=== PATIENT | female | born 1995 | race Caucasian/White ===

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

== ENCOUNTER 2018-01-27 16:07 | Emergency (ER) | payer OTHER ==
[2018-01-27 16:29] VITALS: BMI 21.1
--- NOTE | 2018-01-27 17:42 | PDOC ---
History of Present Illness - General Chief Complaint: Nausea/Vomiting Stated Complaint: STOMACH PAIN, VOMITING Time Seen by Provider: 01/27/18 16:55 - History of Present Illness Initial Comments: Patient is a 22 year old female, with no significant PMH, who presents to the emergency department complaining of 1 day of worsening pelvic pain at end of menstrual cycle. Pt states she started her period 6 days ago and has noted increased cramping/pain, with no change in bleeding volume/frequency, dysuria, discharge, flank pain. Pt states she noted her pain became more constant and sharp in nature, with no cramping and no further bleeding today. Pt also endorses nausea and two episodes of NBNB today. Pt with no sick contacts, recent travel or dietary changes. Pt is currently sexually active with one male partner, does not use protection, with no hx of STIs and no ob gyn conditions. Patient denies chest pain, shortness of breath, headache or dizziness. Denies fever, chills, diarrhea and constipation. Denies dysuria, frequency, urgency and hematuria. Allergies:None Past surgical history: None Social History: Social drinker, 2-3 drinks/month; no smoking or drug use PMD: None 01/27/18 17:40 Past History - Past Medical History Allergies/Adverse Reactions: Allergies Allergy/AdvReac Type Severity Reaction Status Date / Time No Known Allergies Allergy Verified 01/27/18 16:22 Home Medications: Ambulatory Orders Penicillin V Potassium [Pen Vee K -] 500 mg PO TID #30 tablet 09/10/16 Clindamycin [Cleocin -] 300 mg PO TID #30 capsule 09/14/16 Ondansetron [Zofran Odt -] 4 mg SL BID #14 od.tablet 01/27/18 COPD: No - Immunization History Immunization Up to Date: Yes - Suicide/Smoking/Psychosocial Hx Smoking History: Never smoked Hx Alcohol Use: No Drug/Substance Use Hx: No Substance Use Type: None Review of Systems - Review of Systems Comments:: GENERAL/CONSTITUTIONAL: No fever or chills. No weakness. HEAD, EYES, EARS, NOSE AND THROAT: No change in vision. No ear pain or discharge. No sore throat. CARDIOVASCULAR: No chest pain or shortness of breath RESPIRATORY: No cough, wheezing, or hemoptysis. GASTROINTESTINAL: +N/V; No diarrhea or constipation. GENITOURINARY: +band-like pelvic pain; No dysuria, frequency, or change in urination. MUSCULOSKELETAL: No joint or muscle swelling or pain. No neck or back pain. SKIN: No rash NEUROLOGIC: No headache, vertigo, loss of consciousness, or change in strength/ sensation. ENDOCRINE: No increased thirst. No abnormal weight change HEMATOLOGIC/LYMPHATIC: No anemia, easy bleeding, or history of blood clots. ALLERGIC/IMMUNOLOGIC: No hives or skin allergy. 01/27/18 17:50 *Physical Exam - Vital Signs Last Vital Signs Temp Pulse Resp BP Pulse Ox 98.4 F 69 18 116/73 100 01/27/18 16:23 01/27/18 16:23 01/27/18 16:23 01/27/18 16:23 01/27/18 16:23 - Physical Exam Comments: GENERAL: young woman, Awake, alert, and fully oriented, in no acute distress HEAD: No signs of trauma, normocephalic, atraumatic EYES: PERRLA, EOMI, sclera anicteric, conjunctiva clear ENT: Auricles normal inspection, hearing grossly normal, nares patent, oropharynx clear without exudates. Moist mucosa NECK: Normal ROM, supple, no lymphadenopathy, JVD, or masses LUNGS: No distress, speaks full sentences, clear to auscultation bilaterally HEART: Regular rate and rhythm, normal S1 and S2, no murmurs, rubs or gallops, peripheral pulses normal and equal bilaterally. ABDOMEN: Suprapubic pain+; Soft, normoactive bowel sounds. No guarding, no rebound. No masses EXTREMITIES : Normal inspection, Normal range of motion, no edema. No clubbing or cyanosis. NEUROLOGICAL: Cranial nerves II through XII grossly intact. Normal speech, normal gait, no focal sensorimotor deficits SKIN: Warm, Dry, normal turgor, no rashes or lesions noted 01/27/18 17:51 ED Treatment Course - LABORATORY CBC & Chemistry Diagram: 01/27/18 18:37 01/27/18 18:37 Medical Decision Making - Medical Decision Making Patient is a 22 year old female, with no significant PMH, who presents to the emergency department complaining of 1 day of worsening pelvic pain at end of menstrual cycle. DDX include menstrual cramping, GERD, PUD, viral gastritis, UTI , PID, , kidney stone, appendicitis. Plan: - cbc, cmp - UA, u- preg - gc/chlamydia 01/27/18 18:09 UA, cbc, CMP, U-preg all negative; Will discharge home with PO zofran and motrin for pain control. 01/27/18 20:10 *DC/Admit/Observation/Transfer Diagnosis at time of Disposition: Menstrual pain - Discharge Dispostion Disposition: HOME Condition at time of disposition: Good Decision to Admit order: No - Referrals Referrals: Keisha Garcia [Primary Care Provider] - 1 week - Patient Instructions Printed Discharge Instructions: Painful Menstrual Periods, DI for Dysmenorrhea , DI for Nausea -- Adult Additional Instructions: During your visit to the [facility] ED, you were evaluated for nausea,vomiting and abdominal pain. You received standard lab tests, which were all unremarkable. You are being discharged home with outpatient follow-up with your primary care provider. Please take motrin 400mg every four hours if you experience persistent lower abdominal pain. You are being provided a prescription for oral zofran 4mg for nausea. Please take one dose every four hours as needed. If you experience any of the following symptoms, please return to the ED: - Persistent fevers/chills >3 days - Pain with urination, or blood/pus in your urine - Worsening diarrhea or persistent blood in your stool - Persistent bleeding, vaginal discharge or worsening of your abdominal pain - Any new or concerning symptoms - Post Discharge Activity
[2018-01-27 18:44] LABS: BASO % 0.6 % (0-2.0); EOS % 1.8 % (0-4.5); HCG,QUALITATIVE URINE NEGATIVE; HEMATOCRIT 36.8 % (32.4-45.2); HEMOGLOBIN 11.6 GM/dL (10.7-15.3); LYMPH % 25.6 % (8-40); MCH 23.5 pg (25.7-33.7); MCHC 31.5 g/dl (32.0-36.0); MEAN CELL VOLUME 74.6 fl (80-96); MONO % 5.7 % (3.8-10.2); NEUT % 66.3 % (42.8-82.8); PLATELET COUNT 250 K/MM3 (134-434); RBC 4.93 M/mm3 (3.60-5.2); WHITE BLOOD COUNT 8.1 K/mm3 (4.0-10.0)
[2018-01-27 18:47] LABS: URINE APPEARANCE CLEAR; URINE BILIRUBIN NEGATIVE (<2.0 mg/dL); URINE COLOR STRAW; URINE GLUCOSE (UA) NEGATIVE (NEGATIVE); URINE KETONE NEGATIVE (NEGATIVE); URINE LEUK ESTERASE NEGATIVE (NEGATIVE); URINE NITRITE NEGATIVE (NEGATIVE); URINE PROTEIN NEGATIVE (NEGATIVE); URINE UROBILINOGEN NEGATIVE mg/dL (0.2-1.0)
[2018-01-27 19:12] LABS: ALBUMIN 3.8 g/dl (3.4-5.0); ANION GAP 5 (8-16); BLOOD UREA NITROGEN 9 mg/dL (7-18); CALCIUM 8.4 mg/dL (8.5-10.1); CHLORIDE 110 mmol/L (98-107); CO2 27 mmol/L (21-32); CREATININE 0.7 mg/dL (0.55-1.02); GLUCOSE,RANDOM 90 mg/dL (74-106); POTASSIUM 3.9 mmol/L (3.5-5.1); SGOT/AST 9 U/L (15-37); SGPT/ALT 13 U/L (12-78); SODIUM 142 mmol/L (136-145)
[2018-01-27 19:14] LABS: ALK PHOS 40 U/L (45-117); BILIRUBIN,TOTAL 0.3 mg/dL (0.2-1.0); TOT PROT 7.2 g/dl (6.4-8.2)
[2018-01-27] MEDS ORDERED: IBUPROFEN 600 MG TABLET (FP) PO ONE ×2 (19:33→20:57)
--- NOTE | 2018-01-27 20:12 | PDOC ---
Attending Attestation - Resident Resident Name: Aristeo Elaine - ED Attending Attestation I have performed the following: I have examined & evaluated the patient, The case was reviewed & discussed with the resident, I agree w/resident's findings & plan, Exceptions are as noted - HPI HPI: 01/27/18 20:11 22-year-old female presents with several episodes of vomiting today. She denies fever, chills or diarrhea. She does complain of some suprapubic discomfort. She is finishing her menstrual cycle - Physicial Exam PE: 01/27/18 20:12 Well-nourished, well-developed 22-year-old female in no acute distress. Head normocephalic/atraumatic. Neck supple Lungs clear to auscultation bilaterally CVS regular rate and rhythm S1, S2 Abdominal exam. There is no rebound and no guarding. She has no right lower or left lower quadrant pain. Upon palpation, she does complain of some mild suprapubic discomfort with deep palpation Extremities no edema, no clubbing, no cellulitis. Neuro alert and oriented 3 ambulating with ease. skin warm and dry,no rashes Psych appropriate - Medical Decision Making 01/27/18 20:13 CBC and chemistry is essentially unremarkable. UA negative. Negative test Impression gastritis
[2018-01-27 21:09] VITALS: BP 106/72; PULSE 78; TEMP 97.9
--- NOTE | 2018-01-31 13:22 | PDOC ---
Patient Follow-up (Call Back) - Post ED Follow - Up Condition at time of discharge: Good Disposition at time of original discharge: HOME - Disposition Additional Instructions/Notes: Called patient back to advise her of positive Chlamydia results and phoned in some azithromycin. She will follow-up with her PCP. Negative
== END 2018-01-27 20:55 | disposition home or self-care (01) ==
LOC: JER 16:07
DX: N94.6 Dysmenorrhea, unspecified (principal)
CPT/HCPCS: 36415; 80053; 81003; 84703; 85025; 87491; 87591; 99283-25

== ENCOUNTER 2019-08-23 15:56 | Emergency (ER) | payer OTHER ==
[2019-08-23 16:04] VITALS: BP 136/92; PULSE 95; TEMP 98.2; BMI 28.7
--- NOTE | 2019-08-23 16:52 | PDOC ---
History of Present Illness - General Chief Complaint: Pain Stated Complaint: CHEST PAIN/SWOLLEN FEET Time Seen by Provider: 08/23/19 16:08 - History of Present Illness Initial Comments: 08/23/19 16:49 24-year-old female without comorbidities presents for evaluation of atraumatic bilateral heel heel pain x4 days and left upper abdominal pain intermittently she describes as a sharp stab however is absent now. Past History - Past Medical History Allergies/Adverse Reactions: Allergies Allergy/AdvReac Type Severity Reaction Status Date / Time No Known Allergies Allergy Verified 08/23/19 16:02 Home Medications: Ambulatory Orders Penicillin V Potassium [Pen Vee K -] 500 mg PO TID #30 tablet 09/10/16 Clindamycin [Cleocin -] 300 mg PO TID #30 capsule 09/14/16 Ondansetron [Zofran Odt -] 4 mg SL BID #14 od.tablet 01/27/18 Azithromycin [Zithromax] 1,000 mg PO ONCE #2 tablet 01/31/18 COPD: No - Immunization History Immunization Up to Date: Yes - Psycho Social/Smoking Cessation Hx Smoking History: Never smoked Information on smoking cessation initiated: No Hx Alcohol Use: No Drug/Substance Use Hx: No Substance Use Type: None Review of Systems - Review of Systems Musculoskeletal: Yes: See HPI, Joint Pain *Physical Exam - Vital Signs Last Vital Signs Temp Pulse Resp BP Pulse Ox 98.2 F 95 H 16 136/92 100 08/23/19 16:02 08/23/19 16:02 08/23/19 16:02 08/23/19 16:02 08/23/19 16:02 - Physical Exam 08/23/19 16:49 Bilateral feet and ankle skin color and temperature normal range of motion is full. No areas of tenderness about the medial lateral malleolus base of the fifth metatarsal navicular ATFL. Mild tenderness over the retrocalcaneal bursa. Achilles nontender negative Menon's neurovascular intact abdomen soft nontender nondistended Medical Decision Making - Medical Decision Making 08/23/19 16:50 Retrocalcaneal bursitis and most likely diaphragmatic spasm follow-up with PCP and orthopedic surgery Discharge - Discharge Information Problems reviewed: Yes Clinical Impression/Diagnosis: Retrocalcaneal bursitis of both feet, Spasm of diaphragm Condition: Stable Disposition: HOME - Admission No - Follow up/Referral Referrals: Shahana Ramirez MD [Primary Care Provider] - Arsenio Valentin DO [Staff Physician] - - Patient Discharge Instructions Additional Instructions: Tylenol Motrin as directed for pain. Weight-bear as tolerated follow-up with orthopedic surgery without fail in 2 to 3 days for further evaluation and treatment of your ankle pain and with your primary care physician in 2 to 3 days for your diaphragmatic spasm pain. Return to the emergency room for worsening symptoms again follow-up with both physicians both orthopedic surgery and primary care in 2 to 3 days without fail. - Post Discharge Activity
== END 2019-08-23 17:13 | disposition home or self-care (01) ==
LOC: JERFT 15:56
DX: M77.52 Other enthesopathy of left foot and ankle (principal); M77.51 Other enthesopathy of right foot and ankle; R06.6 Hiccough
CPT/HCPCS: 99282-25

== ENCOUNTER 2021-06-16 19:58 | Emergency (ER) | payer OTHER ==
[2021-06-16 20:15] VITALS: BMI 31.1
[2021-06-17] MEDS ORDERED: ACETAMINOPHEN 325 MG TABLET (FP) PO ONE (00:15)
[2021-06-17] MEDS ORDERED: ACETAMINOPHEN 325 MG TABLET (FP) ONE (00:21)
[2021-06-17 00:57] VITALS: TEMP 98.6
[2021-06-17 01:09] VITALS: BP 117/67; PULSE 75
== END 2021-06-17 01:10 | disposition home or self-care (01) ==
LOC: JER 19:58 → JERFT 19:58 → JER 06-17 01:10
DX: S00.83XA Contusion of other part of head, initial encounter (principal); R04.0 Epistaxis; Y04.8XXA Assault by other bodily force, initial encounter
CPT/HCPCS: 70450-TC; 70486-TC; 99284-25

== ENCOUNTER 2024-02-22 17:07 | Emergency (ER) | payer OTHER ==
[2024-02-22 17:15] VITALS: BP 129/69; PULSE 89; RESP 20; TEMP 98.6; BMI 33.2
[2024-02-22 19:21] LABS: BASO % 0.4 % (0-2.0); EOS % 0.9 % (0-4.5); HEMATOCRIT 36.8 % (32.4-45.2); HEMOGLOBIN 11.9 GM/dL (10.7-15.3); LYMPH % 30.9 % (8-40); MCH 23.7 pg (25.7-33.7); MCHC 32.5 g/dl (32.0-36.0); MEAN CELL VOLUME 73.1 fl (80-96); MEAN PLT VOLUME 8.6 fl (7.5-11.1); MONO % 6.2 % (3.8-10.2); NEUT % 61.6 % (42.8-82.8); PLATELET COUNT 283 10^3/uL (134-434); RBC 5.03 M/mm3 (3.60-5.2); RDW 14.6 % (11.6-15.6); WHITE BLOOD COUNT 9.7 K/mm3 (4.0-10.0)
[2024-02-22 19:25] LABS: EPI CELLS 15 /uL (0-25.1); HYALINE CASTS 0 /uL (0-3.1); PH,URINE 7.5 (5.0-8.0); URINE APPEARANCE CLEAR; URINE BACTERIA 161 /uL (0-1359); URINE BILIRUBIN NEGATIVE (NEGATIVE); URINE COLOR YELLOW; URINE GLUCOSE (UA) NEGATIVE (NEGATIVE); URINE KETONE NEGATIVE (NEGATIVE); URINE LEUK ESTERASE TRACE (NEGATIVE); URINE NITRITE NEGATIVE (NEGATIVE); URINE PROTEIN NEGATIVE (NEGATIVE); URINE RBC 19 /uL (0-23.9); URINE UROBILINOGEN 0.2 mg/dL (0.2-1.0); URINE WBC 4 /uL (0-25.8)
[2024-02-22 19:26] LABS: CHLORIDE 106 mmol/L (98-107); POTASSIUM 4.3 mmol/L (3.5-5.1); SODIUM 139 mmol/L (136-145)
[2024-02-22 19:28] LABS: CALCIUM 9.1 mg/dL (8.5-10.1)
[2024-02-22 19:29] LABS: ALBUMIN 3.9 g/dl (3.4-5.0); ANION GAP 5 mmol/L (4-13); BLOOD UREA NITROGEN 11.2 mg/dL (7-18); CO2 28 mmol/L (21-32); GLUCOSE,RANDOM 91 mg/dL (74-106)
[2024-02-22 19:32] LABS: CREATININE 0.8 mg/dL (0.55-1.3); SGOT/AST 9 U/L (15-37); SGPT/ALT 19 U/L (13-61)
[2024-02-22 19:33] LABS: BILIRUBIN,TOTAL 0.1 mg/dL (0.2-1); TOT PROT 7.4 g/dl (6.4-8.2)
[2024-02-22 19:35] LABS: ALK PHOS 53 U/L (45-117); HCG,QUALITATIVE URINE Negative
== END 2024-02-22 19:48 | disposition home or self-care (01) ==
LOC: JER 17:07 → JERFT 17:07
DX: N39.0 Urinary tract infection, site not specified (principal); R10.2 Pelvic and perineal pain
CPT/HCPCS: 36415; 80053; 81003; 84702; 84703; 85025; 87086; 99283-25